=== PATIENT | female | born 1980 | race American Indian/Alaskan Native ===

== ENCOUNTER 2016-06-29 19:47 | Inpatient (IN) | payer MEDICAID, OTHER ==
--- NOTE | 2016-06-29 20:29 | C.PDOC ---
History Of Present Illness 36 year old female presents to the ED with complaints of suicidal ideation. Patient states she is depression and denies homicidal ideation or any physical complaints at this time. Time Seen by Provider: 06/29/16 20:19 Chief Complaint (Nursing): Psychiatric Evaluation History Per: Patient History/Exam Limitations: no limitations Onset/Duration Of Symptoms: Days Current Symptoms Are (Timing): Still Present Suicide/Self Injury Attempted (Context): None Associated Symptoms: Depression, Suicidal Thoughts Past Medical History Reviewed: Historical Data, Nursing Documentation, Vital Signs Vital Signs: Last Vital Signs Temp 98.4 F 06/29/16 20:14 Pulse 87 06/29/16 20:14 Resp 20 06/29/16 20:14 BP 118/79 06/29/16 20:14 Pulse Ox 100 06/29/16 21:18 - Medical History PMH: Anemia Family History: States: Unknown Family Hx - Social History Hx Alcohol Use: No Hx Substance Use: Yes - Immunization History Hx Tetanus Toxoid Vaccination: No Hx Influenza Vaccination: No Hx Pneumococcal Vaccination: No Review Of Systems Except As Marked, All Systems Reviewed And Found Negative. Constitutional: Negative for: Fever, Chills Cardiovascular: Negative for: Chest Pain, Palpitations Respiratory: Negative for: Shortness of Breath Gastrointestinal: Negative for: Abdominal Pain Psych: Positive for: Depression, Suicidal ideation Physical Exam - Physical Exam Appears: Non-toxic, No Acute Distress Skin: Warm, Dry Head: Atraumatic, Normacephalic Eye(s): bilateral: Normal Inspection Oral Mucosa: Moist Chest: Symmetrical Cardiovascular: Rhythm Regular Respiratory: Normal Breath Sounds, No Accessory Muscle Use Extremity: Normal ROM, No Deformity Neurological/Psych: Oriented x3, Normal Speech ED Course And Treatment - Laboratory Results Result Diagrams: 06/29/16 20:58 06/29/16 20:58 O2 Sat by Pulse Oximetry: 100 (Room air) Pulse Ox Interpretation: Normal Medical Decision Making Medical Decision Making: Plan: -Blood work -Urinalysis Progress: Case discussed with the crisis care aid who agreed to evaluate the patient. 918: h/h baseline, noted previous admission with anemia w/u. pt medically cleared Disposition - Disposition Disposition: HOSPITALIZED Disposition Time: 22:29 Condition: STABLE - Clinical Impression Clinical Impression: Moderate major depression, single episode - Scribe Statement The provider has reviewed the documentation as recorded by the Scribe Elvia Avalos. Provider Attestation: All medical record entries made by the Wilbur were at my direction and personally dictated by me. I have reviewed the chart and agree that the record accurately reflects my personal performance of the history, physical exam, medical decision making, and the department course for this patient. I have also personally directed, reviewed, and agree with the discharge instructions and disposition. Decision To Admit - Pt Status Changed To: Hospital Disposition Of: Inpatient - Admit Certification Admit to Inpatient:: After my assessment, the patient will require hospitalization for at least two midnights. This is because of the severity of symptoms shown, intensity of services needed, and/or the medical risk in this patient being treated as an outpatient. - InPatient: Physician Admission Certification: I certify that this patient requires 2 or more midnights of care for the following reason:: pt need sin pt pysch for si - . Bed Request Type: Psychiatry Admitting Physician: Maxwell Thomas Patient Diagnosis: Moderate major depression, single episode
[2016-06-29 20:53] LABS: RBC URINE 3 /hpf (0-3); URINE BACTERIA RARE (<OCC); URINE BILIRUBIN NEGATIVE (NEGATIVE); URINE BLOOD NEGATIVE (NEGATIVE); URINE COLOR Yellow (YELLOW); URINE GLUCOSE (UA) NORMAL (Normal); URINE KETONE NEGATIVE (NEGATIVE); URINE LEUKOCYTE ESTERASE NEG Leu/uL (Negative); URINE PROTEIN NEGATIVE (NEGATIVE); URINE UROBILINOGEN NORMAL mg/dL (0.2-1.0); WBC URINE 2 /hpf (0-5)
[2016-06-29 21:04] LABS: BASO # 0.1 K/uL (0.0-0.2); BASO % 1.1 % (0.0-2.0); EOS # 0.1 K/uL (0.0-0.7); EOS % 2.3 % (0.0-4.0); HEMATOCRIT 28.9 % (34.0-47.0); LYMPH # 2.1 K/uL (1.0-4.3); LYMPH % 33.9 % (20.0-40.0); MEAN CORPUSCULAR HEMOGLOBIN 20.3 pg (27.0-31.0); MEAN PLATELET VOLUME 8.7 fL (7.2-11.7); MONO # 0.5 K/uL (0.0-0.8); MONO % 8.3 % (0.0-10.0); RED CELL DISTRIBUTION WIDTH 34.9 % (11.5-14.5); WHITE BLOOD COUNT 6.3 K/uL (4.8-10.8)
[2016-06-29 21:06] LABS: CHLORIDE 98 mmol/L (98-107)
[2016-06-29 21:07] LABS: POTASSIUM 3.4 mmol/L (3.6-5.2); SODIUM 141 mmol/L (132-148)
[2016-06-29 21:09] LABS: ALB/GLOB RATIO 1.4 (1.0-2.1); ALKALINE PHOSPHATASE 48 U/L (38-126); ALT/SGPT 21 U/L (9-52); AST/SGOT 15 U/L (14-36); BILIRUBIN,TOTAL 0.3 mg/dL (0.2-1.3); BLOOD UREA NITROGEN 8 mg/dL (7-17); CARBON DIOXIDE 28 mmol/L (22-30); GFR AFRICAN-AMERICAN > 60; GLUCOSE,RANDOM 86 mg/dL (65-105); TOTAL PROTEIN 7.6 g/dL (6.3-8.3)
[2016-06-29 21:10] LABS: ALCOHOL SERUM < 10 mg/dl (0-10); CALCIUM 8.3 mg/dl (8.6-10.4); MEAN CELL VOLUME 67.7 fL (81.0-99.0)
[2016-06-29 23:05] VITALS: O2SAT 98
[2016-06-30] MEDS ORDERED: Influenza Virus Vaccine 45 mcg/0.5 ml Syr IM ONE (00:53)
[2016-06-30] MEDS ORDERED: Pneumococcal 23-Valent Vaccine IM ONE (00:53)
--- NOTE | 2016-06-30 13:57 | PCM.PSYCH ---
Initial Psychiatric Evaluation - Initial Psychiatric Evaluation Type of Admission: Voluntary Legal Status: Capacity Chief Complaint (in patient's own words): I'm hearing voices History of Present Illness and Precipitating Events: This is a 36 years old -Welsh female who lives with her mother and 2 kids. Patient came to the hospital because of depressed mood, auditory hallucinations command type to kill herself and pain medication abuse. Patient is known to the personal lines underwriter as patient was recently discharged from [facility] almost 1 month ago. As per the patient, she relapsed on oxycodone as soon as she was discharged from the hospital. As per the patient she has been taking 3-4 30 mg oxycodones on a daily basis. Patient states that yesterday she consumed almost 3 pills, became increasingly irritable and agitated, started hearing voices and developed suicidal ideation, so came to the hospital to get help. Patient reports of racing of thoughts, flight of ideas and poor concentration. She also reports at times depressed mood, feelings of hopelessness and helplessness, poor sleep and poor appetite. Patient reports of auditory hallucinations command type to kill herself and reports persecutory delusions that someone is following her. Patient reports withdrawal symptoms including nausea, abdominal cramps, bone pains, hot and cold sweats, and anxiety. Urinary toxicology is positive for benzodiazepine, however, she denies any drinking or any other substance abuse. Medical history Iron deficiency anemia Current Medications: Active Medications Generic Name Dose Route Start Last Admin Trade Name Freq PRN Reason Stop Dose Admin Benztropine Mesylate 1 mg 06/30/16 22:00 Cogentin PO HS VIDA Ibuprofen 600 mg 06/30/16 00:04 06/30/16 00:56 Motrin Tab PO 600 mg Q6H PRN Administration Pain, moderate (4-7) Methadone HCl 20 mg 06/30/16 13:53 Methadone PO 06/30/16 13:54 STAT STA Risperidone 1 mg 06/30/16 22:00 Risperdal Tab PO HS VIDA Sertraline HCl 100 mg 07/01/16 10:00 Zoloft PO DAILY VIDA Trazodone HCl 50 mg 06/30/16 00:15 06/30/16 00:48 Desyrel PO 50 mg HS VIDA Administration Trazodone HCl 50 mg 06/30/16 22:00 Desyrel PO HS VIDA Past Psychiatric History - Past Psychiatric History Previous Treatment History: Inpatient Pertinent Medical Hx (Current Medical&Sleep Prob, Allergies): Allergies Allergy/AdvReac Type Severity Reaction Status Date / Time No Known Allergies Allergy Verified 06/29/16 20:13 oxyCODONE [oxyCODONE Immediate Release Tab] 30 mg PO DAILY 05/22/16 Benztropine [Cogentin] 1 mg PO HS #30 tab 05/28/16 Sertraline [Zoloft] 100 mg PO DAILY #60 tab 05/28/16 risperiDONE [RisperDAL Tab] 1 mg PO HS #30 tab 05/28/16 traZODone [Desyrel] 50 mg PO HS #30 tab 05/28/16 Review of Systems - Review of Systems All systems: reviewed and no additional remarkable complaints except - Psychiatric Psychiatric: Anxiety, Auditory Hallucinations, Irritability, Mood Swings, Paranoia, Suicidal Ideation Mental Status Examination - Personal Presentation Personal Presentation: Looks stated age - Affect Affect: Constricted, Depressed - Motor Activity Motor Activity: Psychomotor Agitation - Reliability in Providing Information Reliability in Providing Information: Poor, due to altered mood - Speech Speech: Organized - Mood Mood: Depressed, Anxious - Formal Thought Process Formal Thought Process: Hallucinations, Delusions, Paranoia, Loosening of associations - Hallucinations/Delusions Hallucinations: Auditory Delusions: Persecution - Obsessions/Compulsions Obsessions: No Compulsions: No - Cognitive Functions Orientation: Person, Place, Situation, Time Sensorium: Alert Attention/Concentration: Attentive Abstract Thinking: [place] Estimate of Intelligence: Below average Judgement: Imparied, as evidence by: Poor judgement, Imparied, as evidence by: Lack of insight into illness - Risk Risk: Suicidal, Withdrawal, Diminished functioning - Strength & Assets Inventory Strength & Assets Inventory: Family support DSM 5 DX - DSM 5 DSM 5 Diagnosis: Bipolar disorder mixed severe with psychotic features Opioid use disorder severe Opioid withdrawal - Recommended/Plan of Treatment Treatment Recommendations and Plan of Treatment: Bipolar disorder mixed severe with psychotic features CBT Psychoeducation Supportive therapy and group therapy Zoloft 25 mg by mouth twice a day Risperdal 1 mg by mouth daily at bedtime Depakote 250 mg by mouth twice a day Trazodone 50 mg by mouth daily at bedtime Opioid use disorder severe CBT Psychoeducation Supportive therapy, individual therapy Use [place] for abstinence Opioid withdrawal CBT Psychoeducation Supportive therapy, individual therapy Clonidine when necessary Methadone taper Iron Deficiency Anemia Start iron tablets Monitor signs and symptoms - Smoking Cessation Smoking Cessation Initiated: No
[2016-06-30] MEDS ORDERED: Divalproex 250 mg DR Tab PO SCH (18:00)
[2016-06-30] MEDS: Ferrous Sulfate 300 mg/5 mL Liq UD PO SCH (19:49)
[2016-06-30] MEDS: Valproic Acid 250 mg/5 ml UD Cup PO SCH (19:49)
[2016-07-01] MEDS: Ferrous Sulfate 300 mg/5 mL Liq UD PO SCH ×3 (09:41→17:16)
[2016-07-01] MEDS: Valproic Acid 250 mg/5 ml UD Cup PO SCH ×2 (09:41→17:16)
--- NOTE | 2016-07-01 14:38 | PCM.PYCHPN ---
Psychiatric Progress Note - Psychiatric Progress Note Patient seen today, length of contact: 17 min Patient Chief Complaint: I'm still feeling anxious Problems Identified/Issues Discussed: Patient seen and evaluated, chart reviewed and discussed with the nurse. Patient reports irritability and agitation. She reports racing of thoughts and flight of ideas and anxiety. She remained isolated and withdrawn. She still reports withdrawal symptoms including anxiety, headaches, cramps, bone pains and sweating. She reports of auditory hallucinations and persecutory delusions. However she remained calm and cooperative. She is taking medication and denies any side effects. Supportive therapy and psychoeducation were given Medication Change: Yes (Start Depakote) Medical Record Reviewed: Yes Mental Status Examination - Cognitive Function Orientation: Person, Place, Situation, Time Memory: Intact Attention: WNL Concentration: Poor Association: Loose Fund of Knowledge: WNL - Mood Mood: Depressed, Anxious - Affect Affect: Constricted, Depressed - Speech Speech: Soft - Formal Thought Process Formal Thought Process: Hallucinations, Delusions, Paranoia, Loosening of associations - Suicidal Ideation Suicidal Ideation: No - Homicidal Ideation Homicidal Ideation: No Goal/Treatment Plan - Goal/Treatment Plan Need for Continued Stay: Discharge may exacerbated symptoms, Severe functional impairment Progress Toward Problem(s) and Goals/Treatment Plan: Bipolar disorder mixed severe with psychotic features CBT Psychoeducation Supportive therapy and group therapy Zoloft 25 mg by mouth twice a day Risperdal 1 mg by mouth daily at bedtime Depakote 250 mg by mouth daily Depakote 500 mg by mouth HS Trazodone 50 mg by mouth daily at bedtime Opioid use disorder severe CBT Psychoeducation Supportive therapy, individual therapy Use [place] for abstinence Opioid withdrawal CBT Psychoeducation Supportive therapy, individual therapy Clonidine when necessary Methadone taper Iron Deficiency Anemia iron tablets Monitor signs and symptoms - Smoking Cessation Smoking Cessation Initiated: No
[2016-07-02] MEDS: Valproic Acid 250 mg/5 ml UD Cup PO SCH ×3 (10:45→18:09)
[2016-07-02] MEDS: Ferrous Sulfate 300 mg/5 mL Liq UD PO SCH ×3 (10:46→18:07)
--- NOTE | 2016-07-02 10:51 | PCM.PYCHPN ---
Psychiatric Progress Note - Psychiatric Progress Note Patient seen today, length of contact: 19 min Patient Chief Complaint: I'm hearing voices Problems Identified/Issues Discussed: Patient seen and evaluated, chart reviewed and discussed with the nurse. As per the staff patient remained irritable and agitated. she reports that her head never stops and these racing of thoughts and anxiety is bothering her. She still reports withdrawal symptoms including cramps, bone pains, anxiety, headaches and sweating. She is still reporting auditory hallucinations and persecutory delusions. She was pacing back and forth in the hallways and appeared disorganized and internally preoccupied. She is taking medication and denies any side effects. Supportive therapy and psychoeducation were given Medication Change: Yes (Start Haldol, and increase Depakote) Medical Record Reviewed: Yes Mental Status Examination - Cognitive Function Orientation: Person, Place, Situation, Time Memory: Intact Attention: WNL Concentration: Poor Association: Loose Fund of Knowledge: WNL - Mood Mood: Depressed, Anxious - Affect Affect: Constricted, Depressed - Formal Thought Process Formal Thought Process: Hallucinations, Delusions, Paranoia, Loosening of associations, Flight of ideas - Suicidal Ideation Suicidal Ideation: No - Homicidal Ideation Homicidal Ideation: No Goal/Treatment Plan - Goal/Treatment Plan Need for Continued Stay: Discharge may exacerbated symptoms, Severe functional impairment Progress Toward Problem(s) and Goals/Treatment Plan: Bipolar disorder mixed severe with psychotic features CBT Psychoeducation Supportive therapy and group therapy Zoloft 25 mg by mouth twice a day d/c Risperdal 1 mg by mouth daily at bedtime Depakote 500 mg by mouth twice a day Trazodone 50 mg by mouth daily at bedtime Haldol 5 mg by mouth twice a day Seroquel 50 mg by mouth daily at bedtime Opioid use disorder severe CBT Psychoeducation Supportive therapy, individual therapy Use [place] for abstinence Opioid withdrawal CBT Psychoeducation Supportive therapy, individual therapy Clonidine when necessary Methadone taper Iron Deficiency Anemia iron tablets Monitor signs and symptoms - Smoking Cessation Smoking Cessation Initiated: Yes
[2016-07-03] MEDS: Valproic Acid 250 mg/5 ml UD Cup PO SCH ×2 (09:46→18:26)
[2016-07-03] MEDS: Ferrous Sulfate 300 mg/5 mL Liq UD PO SCH ×3 (09:46→18:26)
[2016-07-04] MEDS: Ferrous Sulfate 300 mg/5 mL Liq UD PO SCH ×3 (09:53→17:46)
[2016-07-04] MEDS: Valproic Acid 250 mg/5 ml UD Cup PO SCH ×2 (09:53→17:46)
--- NOTE | 2016-07-04 22:49 | PCM.PYCHPN ---
Psychiatric Progress Note - Psychiatric Progress Note Patient seen today, length of contact: 15 MIN Patient Chief Complaint: i AM IN PAIN THE OTHER DOCTOR SAID HE WOULD ORDER TRAMADOL BUT HE DIDN'T Problems Identified/Issues Discussed: TRAMADOL WOULD NOT BE ORDERED, SYMPTOM MANAGEMENT Medical Problems: NOTHING ACUTE Diagnostic Results: REVIEWED Medication Change: Yes (FLEXERIL) Medical Record Reviewed: Yes Mental Status Examination - Cognitive Function Orientation: Place, Situation, Time Memory: Intact Attention: WNL Concentration: Poor Association: WNL Fund of Knowledge: WNL - Mood Mood: Depressed, Anxious - Affect Affect: Constricted, Depressed - Speech Speech: Appropriate, Soft - Formal Thought Process Formal Thought Process: Hallucinations, Delusions, Loosening of associations, Flight of ideas, Other Psychotic Thoughts and Behaviors: ATTEMPTS MANIPULATION - Suicidal Ideation Suicidal Ideation: No - Homicidal Ideation Homicidal Ideation: No Goal/Treatment Plan - Goal/Treatment Plan Need for Continued Stay: Discharge may exacerbated symptoms, Severe functional impairment Progress Toward Problem(s) and Goals/Treatment Plan: BIPOLAR DISORDER- HALDOL DEPAKOTE OPIATE WITHDRAWAL METHADONE TAPER FINISHED OPIATE USE DISORDER GROUPS HI CBT Estimated Date of D/C: 07/10/16 - Smoking Cessation Smoking Cessation Initiated: No
--- NOTE | 2016-07-04 22:55 | PCM.PYCHPN ---
Psychiatric Progress Note - Psychiatric Progress Note Patient seen today, length of contact: 15 MIN Patient Chief Complaint: i CAN I HAVE SOMA INSTEAD OF FLEXERIL Problems Identified/Issues Discussed: PAWS Medical Problems: NOTHING ACUTE Diagnostic Results: REVIEWED Medication Change: No (FLEXERIL) Medical Record Reviewed: Yes Mental Status Examination - Cognitive Function Orientation: Person, Place, Situation Memory: Intact Attention: WNL Concentration: Poor Association: WNL Fund of Knowledge: WNL - Mood Mood: Depressed, Anxious - Affect Affect: Constricted, Depressed - Speech Speech: Appropriate, Soft - Formal Thought Process Formal Thought Process: Hallucinations, Delusions, Loosening of associations, Flight of ideas, Other Psychotic Thoughts and Behaviors: MANIPULATIVE - Suicidal Ideation Suicidal Ideation: No - Homicidal Ideation Homicidal Ideation: No Goal/Treatment Plan - Goal/Treatment Plan Need for Continued Stay: Remain at risks for inpatient hospitalization, Discharge may exacerbated symptoms, Severe functional impairment Progress Toward Problem(s) and Goals/Treatment Plan: BIPOLAR DISORDER- HALDOL DEPAKOTE OPIATE WITHDRAWAL METHADONE TAPER FINISHED OPIATE USE DISORDER GROUPS [place] CBT Estimated Date of D/C: 07/10/16 - Smoking Cessation Smoking Cessation Initiated: No
[2016-07-05] MEDS: Ferrous Sulfate 300 mg/5 mL Liq UD PO SCH ×2 (10:09→13:05)
[2016-07-05] MEDS: Valproic Acid 250 mg/5 ml UD Cup PO SCH (10:10)
[2016-07-05 10:43] VITALS: RESP 18; TEMP 98.2
--- NOTE | 2016-07-05 10:51 | PCM.PYCHDC ---
Mental Status Examination - Mental Status Examination Orientation: Person, Place, Situation, Time Memory: Intact Mood: Neutral Affect: Constricted Speech: Soft Attention: WNL Concentration: WNL Association: WNL Fund of Knowledge: WNL Formal Thought Process: No Impairment Description of patient's judgement and insight: good, fair Psychotic Thoughts and Behaviors: denies any AVH Suicidal Ideation: No Current Homicidal Ideation?: No Discharge Summary - Discharge Note Reason for Hospitalization: This is a 36 years old -Senegalese female who lives with her mother and 2 kids. Patient came to the hospital because of depressed mood, auditory hallucinations command type to kill herself and pain medication abuse. Patient is known to the parts data writer as patient was recently discharged from [facility] almost 1 month ago. As per the patient, she relapsed on oxycodone as soon as she was discharged from the hospital. As per the patient she has been taking 3-4 30 mg oxycodones on a daily basis. Patient states that yesterday she consumed almost 3 pills, became increasingly irritable and agitated, started hearing voices and developed suicidal ideation, so came to the hospital to get help. Patient reports of racing of thoughts, flight of ideas and poor concentration. She also reports at times depressed mood, feelings of hopelessness and helplessness, poor sleep and poor appetite. Patient reports of auditory hallucinations command type to kill herself and reports persecutory delusions that someone is following her. Patient reports withdrawal symptoms including nausea, abdominal cramps, bone pains, hot and cold sweats, and anxiety. Urinary toxicology is positive for benzodiazepine, however, she denies any drinking or any other substance abuse. Medical history Iron deficiency anemia Consultations:: List each consultation separately and include: 1. Reason for request. 2. Findings. 3. Follow-up Summary of Hospital Course include:: 1. Description of specific treatment plan utilized for patients during their course of treatmen. 2. Summarize the time- course for resolution of acute symptoms and/or regressed behaviors. 3. Describe issues identified and worked on during hospitalization. 4. Describe medication utilized. 5. Describe medical problems identified and treated. 6. Reassessment of suicide risk Summary of Hospital Course: During the course of her stay, patient (pt) started progressively improving and she no longer remained irritable, anxious and paranoid. Her mood and paranoia were improved and she started attending groups and meetings and started socializing. Patient denied any feelings of hopelessness, helplessness, and worthlessness, denied any problem with the sleep or appetite, denied suicidal ideation or homicidal ideation. Pt denied any auditory or visual hallucinations. Some changes were made in her current medications and patient was discharged on following medications. She tolerated these medications very well and denied any side effects. - Final Diagnosis (DSM 5) Condition upon Discharge: STABLE DSM 5: Bipolar disorder mixed severe with psychotic features Opioid use disorder severe Opioid withdrawal Disposition: HOME/ ROUTINE Follow-up Treatment Plan: Education: Pt was educated and counseled about the risks and benefits of taking and not taking medications. Pt was educated and counseled about the risks of drinking and abusing drugs. Pt was educated and counseled to go to the ER or call 911 if pt develop suicidal ideation or homicidal ideation, worsening of symptoms or severe side effects of the meds. Prescriptions/Medication Reconciliation: Benztropine [Cogentin] 1 mg PO BID PRN #60 tab PRN Reason: EPS SYMPTOMS Divalproex [Depakote DR(*BID*)] 500 mg PO BID #60 tcp traZODone [Desyrel] 50 mg PO HS PRN #30 tab PRN Reason: Insomnia Haloperidol [Haldol] 5 mg PO BID #60 tab QUEtiapine [SEROquel] 50 mg PO HS #30 tab Sertraline [Zoloft] 25 mg PO DAILY #30 tab - Smoking Cessation Smoking Cessation Medication prescribed: No - Antipsychotic Medications Pt discharged on 2 or more routine antipsychotic medications: No
[2016-07-05 16:07] VITALS: BP 105/69; PULSE 86
== END 2016-07-05 15:45 | disposition home or self-care (01) | DRG 430 ==
LOC: C.ER 19:47 → C.5E 22:29
DX: F31.64 Bipolar disorder, current episode mixed, severe, with psychotic features (principal); R45.851 Suicidal ideations; F11.23 Opioid dependence with withdrawal; D50.9 Iron deficiency anemia, unspecified; F17.200 Nicotine dependence, unspecified, uncomplicated; F41.9 Anxiety disorder, unspecified; Z79.899 Other long term (current) drug therapy

== ENCOUNTER 2017-01-11 11:08 | Inpatient (IN) | payer MEDICAID, OTHER ==
[2017-01-11 11:13] VITALS: BMI 23.3
--- NOTE | 2017-01-11 11:58 | C.PDOC ---
History Of Present Illness 36 y/o female, history of depression and medication abuse, also chronic anemia, DUB, presents to emergency department with complaint of suicidal ideation and suicidal attempt last night. Patient states that she took Hydralazine 15 tablets yesterday, received "from somebody else". Pt admits, it was 24 hrs ago. She states that she "fell asleep, and woke up, nothing happened." Patient reports she feels depressed with suicidal thoughts currently. She reports last dose of oxycodone was 3 days ago. Denies any active physical complaints at this time. Time Seen by Provider: 01/11/17 11:23 Chief Complaint (Nursing): Psychiatric Evaluation History Per: Patient History/Exam Limitations: no limitations Onset/Duration Of Symptoms: Days Current Symptoms Are (Timing): Still Present Suicide/Self Injury Attempted (Context): Ingestion Modifying Factor(s): Narcotics Associated Symptoms: Depression, Suicidal Thoughts, Suicidal Plan Recent travel outside of the [place]: No Past Medical History Reviewed: Historical Data, Nursing Documentation, Vital Signs Vital Signs: Last Vital Signs Temp 98.3 F 01/11/17 14:53 Pulse 92 H 01/11/17 16:27 Resp 20 01/11/17 17:28 BP 128/84 01/11/17 16:27 Pulse Ox 100 01/11/17 15:00 - Medical History PMH: Anemia, Anxiety, Depression Family History: States: Unknown Family Hx - Social History Hx Alcohol Use: No Hx Substance Use: Yes (Benzo and opiates-Xanax and oxycodone) - Immunization History Hx Tetanus Toxoid Vaccination: No Hx Influenza Vaccination: No Hx Pneumococcal Vaccination: No Review Of Systems Except As Marked, All Systems Reviewed And Found Negative. Constitutional: Negative for: Fever, Chills Cardiovascular: Negative for: Chest Pain Respiratory: Negative for: Cough, Shortness of Breath Gastrointestinal: Negative for: Nausea, Vomiting, Abdominal Pain Skin: Negative for: Rash Neurological: Negative for: Headache, Dizziness Psych: Positive for: Depression, Suicidal ideation Physical Exam - Physical Exam Appears: Non-toxic, No Acute Distress Skin: Normal Color, Warm, Dry Head: Atraumatic, Normacephalic Oral Mucosa: Moist Chest: Symmetrical Cardiovascular: Rhythm Regular Respiratory: Normal Breath Sounds, No Rales, No Rhonchi, No Wheezing Gastrointestinal/Abdominal: Soft, No Tenderness, No Guarding, No Rebound Back: Normal Inspection Extremity: Normal ROM, Capillary Refill (< 2 sec.) Neurological/Psych: Oriented x3, Normal Speech, Normal Cognition ED Course And Treatment - Laboratory Results Result Diagrams: 01/11/17 11:58 01/11/17 11:58 Lab Interpretation: No Changes Compared To Prior Results ECG: Interpreted By Me, Viewed By Me Interpretation Of ECG: SR@80/min, NAD, T wave inversion in V2-V4, no acute ST-T changes. O2 Sat by Pulse Oximetry: 100 (RA) Pulse Ox Interpretation: Normal Progress Note: Poison control was called by ALLEN [facility]. Recommend blood work including ASA and Tylenol level. On re-evaluation, pt remained unchanged. Afebrile, hemodynamicaly stable, non-toxic, copperative. Neck; Supple, (-) carotid bruits B/L, (-) JVD. CVS: (+)S1S2, reg, (-) murmur. Lungs: CTA B/L, BS equal B/L. Abd: benign. Blood work review and low hemoglobin noted. Pt admits, had transfusion on 05/22/16, " my baseline Hb usually 7". No other acute abnormalities noted. Ptw as OBS in ED for 2 hours and remianed stable. Pt is medically cleared for psych eval. After Crisis eval pt in ED, case discussed with DR. bennett and admission recommend with Dx: Depression, suicidal.Medication abuse. Chronic anemia. Disposition - Disposition Disposition: HOSPITALIZED Disposition Time: 14:59 Condition: STABLE - Clinical Impression Clinical Impression: Suicide attempt, Moderate major depression, single episode, Anemia - PA / PATTERN PUNCHER / Resident Statement MD/DO has reviewed & agrees with the documentation as recorded. - Scribe Statement The provider has reviewed the documentation as recorded by the Scribe Martin Quinn All medical record entries made by the Wilbur were at my direction and personally dictated by me. I have reviewed the chart and agree that the record accurately reflects my personal performance of the history, physical exam, medical decision making, and the department course for this patient. I have also personally directed, reviewed, and agree with the discharge instructions and disposition.
[2017-01-11 12:07] LABS: HEMATOCRIT 24.9 % (34.0-47.0); MEAN CORPUSCULAR HEMOGLOBIN 16.5 pg (27.0-31.0); MEAN CORPUSCULAR HGB CONC 30.1 g/dL (33.0-37.0); MEAN PLATELET VOLUME 10.1 fL (7.2-11.7); RED CELL DISTRIBUTION WIDTH 23.4 % (11.5-14.5); WHITE BLOOD COUNT 5.7 K/uL (4.8-10.8)
[2017-01-11 12:10] LABS: MEAN CELL VOLUME 54.7 fL (81.0-99.0)
[2017-01-11 12:13] LABS: CHLORIDE 104 mmol/L (98-107); SODIUM 142 mmol/L (132-148)
[2017-01-11 12:15] LABS: AST/SGOT 13 U/L (14-36); BILIRUBIN,TOTAL 0.6 mg/dL (0.2-1.3); CARBON DIOXIDE 20 mmol/L (22-30); GFR AFRICAN-AMERICAN > 60
[2017-01-11 12:16] LABS: ALB/GLOB RATIO 1.4 (1.0-2.1); ALKALINE PHOSPHATASE 47 U/L (38-126); ALT/SGPT 19 U/L (9-52); BLOOD UREA NITROGEN 6 mg/dL (7-17); GLUCOSE,RANDOM 87 mg/dL (65-105); TOTAL PROTEIN 8.1 g/dL (6.3-8.3)
[2017-01-11 12:42] LABS: LYMPH # 1.4 K/uL (1.0-4.3)
[2017-01-11 12:43] LABS: BASO # 0.1 K/uL (0.0-0.2); EOS # 0.1 K/uL (0.0-0.7)
[2017-01-11 13:11] LABS: RBC URINE 1 /hpf (0-3); URINE BACTERIA RARE (<OCC); URINE BILIRUBIN NEGATIVE (NEGATIVE); URINE BLOOD NEGATIVE (NEGATIVE); URINE COLOR Yellow (YELLOW); URINE GLUCOSE (UA) NORMAL (Normal); URINE KETONE NEGATIVE (NEGATIVE); URINE LEUKOCYTE ESTERASE 1+ Leu/uL (Negative); URINE PROTEIN NEGATIVE (NEGATIVE); URINE UROBILINOGEN NORMAL mg/dL (0.2-1.0); WBC URINE 7 /hpf (0-5)
[2017-01-11] MEDS ORDERED: Aluminum Hydroxide/Magnesium Hydroxide Susp (30 mL) PO PRN (17:42)
[2017-01-11] MEDS: Multiple Vitamins Tab PO SCH ×2 (18:08→18:22)
--- NOTE | 2017-01-11 18:34 | PCM.BM ---
<VirgilioUna - Last Filed: 01/11/17 18:31> Treatment Plan Problems - Problems identified on initial assessmt Depression Date Initiated: 01/11/17 Time Initiated: 16:15 Assessment reference: NA Status: Active Treatment assets and liabiliti Patient Assests: adapts well, cooperative, negotiates basic needs Patient Liabilities: live alone <Bailey Llamas - Last Filed: 01/12/17 11:13> Family Contact Family involvement: Famliy/SO not involved - Goals for Treatment Patient goals for treatment: "I want to go to rehab." Discharge/Continuing Care - Education Needs Education Needs: Patient Medication, Patient Coping Skills - Discharge Discharge Criteria: Tolerates medication w/o severe side effects, Free of Suicidal thoughts, No longer exhibiting s/s of withdrawal Discharge to:: Substance Abuse Rehab - Treatment Team Participation Discussed with Family/SO: No Was Patient/Family/SO present at Treatment Team Meeting: Yes <Maxwell Thomas - Last Filed: 01/12/17 16:56> - Diagnosis (1) Bipolar 1 disorder, depressed, moderate Status: Acute Interventions: Assess/had just medications daily and/or as needed See patient on an individual basis 7x/week to assess status of depression Discussed risks, benefits, side effects and alternatives of medications 01/12/17 16:54 (2) Opioid dependence Status: Acute Interventions: Assess 7x/week regarding severity of withdrawal symptoms Educated regarding risks, benefits, side effects and alternatives of medications Used motivational interviewing for abstinence Use CBT for relapse prevention Medication management for withdrawal symptoms Encourage medication assisted treatment 01/12/17 16:55 (3) Cannabis use disorder, mild, abuse Status: Acute Interventions: Assess 7x/week regarding severity of withdrawal symptoms Educated regarding risks, benefits, side effects and alternatives of medications Used motivational interviewing for abstinence Use CBT for relapse prevention Medication management for withdrawal symptoms Encourage medication assisted treatment 01/12/17 16:56
[2017-01-11] MEDS ORDERED: DiphenhydrAMINE 12.5 mg/5 ml LIQ UD (5 ml) PO PRN (19:00)
[2017-01-11] MEDS ORDERED: Loperamide Hydrochloride 1 mg/5 ml Cup PO PRN (19:00)
[2017-01-11] MEDS: Acetaminophen 650mg/20.3ml solution UD PO PRN (19:29)
[2017-01-11] MEDS: Ferrous Sulfate 300 mg/5 mL Liq UD PO SCH (19:30)
[2017-01-12] MEDS: Ferrous Sulfate 300 mg/5 mL Liq UD PO SCH ×3 (09:51→18:32)
[2017-01-12] MEDS: Multiple Vitamins Tab PO SCH (09:52)
--- NOTE | 2017-01-12 16:49 | PCM.PSYCH ---
Initial Psychiatric Evaluation - Initial Psychiatric Evaluation History of Present Illness and Precipitating Events: This is a 36 years old -[place] female who lives with her mother and 2 children, 7 years and 15 years old. Patient was admitted to the hospital because of depressed mood, suicidal attempt by overdose on hydroxyzine. Reported she took 15 hydroxyzine tablets but nothing happened except sleep. After waking, came to [facility] ER and was admitted subsequently, and pain medication abuse. Patient reported feeling more depressed for last 7 months, decreased sleep, variable appetite, no change in weight. Suicidal ideations with plan to overdose on her medications and subsequently attempted by overdosing on 15 tablets of hydroxyzine. History of one previous suicidal attempts in May 2016 when patient was admitted to [facility]. History of 2 previous admissions at [facility] in May and June 2016. Currently denied any psychotic features but during her last admission patient reported having command type auditory hallucinations telling her to kill herself. Patient also reported having mood swings, racing thoughts, irritability, anger and spending money. Denied any anxiety symptoms. Patient has history of oxycodone use. Reported she started to 3 years ago. In the beginning she was prescribed Percocet after right wrist surgery. Later she started buying oxycodone from [employer]. Currently reported was taking 10 oxycodone tablets each of 30 mg daily. His last used reported 2 days ago. Reported having mild withdrawal symptoms. Cannabis. Started 10 years ago and last use reported 2 months ago. Urine drug screen is positive for cannabis but not for opiates. Patient smokes one pack of cigarettes daily and is requesting for nicotine patch. Patient has iron deficiency anemia, not taking treatment. History of right wrist surgery and 2 C-sections. Patient was born in [place], has high school graduation, not working. Her last job was in December 2016. Lives with HER-2 children and mother. She is single. Her height is 5 feet 5 inches and weight is 140 pounds. Current Medications: Active Medications Generic Name Dose Route Start Last Admin Trade Name Freq PRN Reason Stop Dose Admin Acetaminophen 650 mg 01/11/17 18:26 01/11/17 19:29 Tylenol 650mg/20.3ml Solution Ud PO 650 mg Q6H PRN Administration Pain, moderate (4-7) Al Hydrox/Mg Hydrox/Simethicone 30 ml 01/11/17 17:42 Maalox 30 Ml PO TID PRN Indigestion / Heartburn Ciprofloxacin 500 mg 01/12/17 18:00 Cipro PO 01/16/17 23:59 BID VIDA Clonidine HCl 0.1 mg 01/11/17 17:42 01/12/17 16:23 Catapres PO 0.1 mg Q8 PRN Administration COWS Score More or Equal to 5 Diphenhydramine HCl 25 mg 01/11/17 19:00 Benadryl PO Q6 PRN Anxiety Docusate Sodium 100 mg 01/11/17 18:00 01/12/17 09:59 Colace PO Not Given BID VIDA Ferrous Sulfate 300 mg 01/11/17 19:00 01/12/17 13:34 Feosol Liq PO 300 mg TID VIDA Administration Hydroxyzine HCl 50 mg 01/12/17 16:11 01/12/17 16:18 Atarax PO 50 mg Q6 PRN Administration Anxiety Loperamide HCl 2 mg 01/11/17 19:00 Imodium PO Q8 PRN Diarrhea Multivitamins 1 tab 01/11/17 17:45 01/12/17 09:52 Hexavitamin PO 1 tab DAILY VIDA Administration Ondansetron HCl 4 mg 01/11/17 19:00 Zofran Odt PO Q8 PRN Nausea/Vomiting Pneumococcal Polyvalent Vaccine 0.5 ml 01/14/17 10:00 Pneumovax 23 Vaccine IM 01/14/17 10:01 .ONCE ONE Risperidone 1 mg 01/12/17 22:00 Risperdal Oral Soln PO HS VIDA Sertraline HCl 25 mg 01/11/17 17:45 01/12/17 09:52 Zoloft PO 25 mg DAILY VIDA Administration Trazodone HCl 50 mg 01/11/17 22:00 01/11/17 21:37 Desyrel PO 50 mg HS VIDA Administration Valproate Sodium 250 mg 01/12/17 18:00 Depakene Oral Soln PO BID VIDA Past Psychiatric History - Past Psychiatric History Previous Treatment History: Inpatient At [facility]: [facility] x 2 History of Abuse: None reported History of ETOH/Drug Use: See HPI History of Family Illness: None reported Pertinent Medical Hx (Current Medical&Sleep Prob, Allergies): Allergies Allergy/AdvReac Type Severity Reaction Status Date / Time No Known Allergies Allergy Verified 10/03/17 11:12 oxyCODONE [oxyCODONE Immediate Release Tab] 30 mg PO DAILY 05/22/16 Iron deficiency anemia Review of Systems - Psychiatric Psychiatric: Depression Mental Status Examination - Personal Presentation Personal Presentation: Looks stated age - Affect Affect: Depressed - Motor Activity Motor Activity: Calm - Reliability in Providing Information Reliability in Providing Information: Fair - Speech Speech: Organized - Mood Mood: Depressed - Formal Thought Process Formal Thought Process: No Impairment Additional comments: None - Hallucinations/Delusions Hallucinations: Other (None reported) Delusions: Other - Obsessions/Compulsions Obsessions: None Compulsions: None - Cognitive Functions Orientation: Person, Place, Situation, Time Sensorium: Alert Attention/Concentration: Attentive Abstract Thinking: [place] Estimate of Intelligence: Average Judgement: Intact, as evidence by: Insight regarding need for hospitalization Memory: Recent intact, as evidence by: 3/3 object recall, Remote intact, as evidenced by: Ability to recall historical events - Risk Risk: Diminished functioning - Strength & Assets Inventory Strength & Assets Inventory: Family support, Cooperative - Limitations Limitations: Other DSM 5 DX - DSM 5 DSM 5 Diagnosis: Bipolar 1 disorder most recent episode depressed Opiate use disorder severe Cannabis use disorder - Recommended/Plan of Treatment Treatment Recommendations and Plan of Treatment: Patient education Supportive therapy We will start clonidine and other when necessary medications for opiate withdrawal symptoms Patient has no severe symptoms, only has mild withdrawal symptoms. If patient developed severe symptoms then we'll start methadone Medications for depression Other when necessary medications Motivation interview for abstinence C BT for relapse prevention Projected ELOS: 8-10 days - Smoking Cessation Smoking Cessation Initiated: Yes
[2017-01-12] MEDS ORDERED: Divalproex 250 mg DR Tab PO SCH (18:00)
[2017-01-12] MEDS: Valproic Acid 250 mg/5 ml UD Cup PO SCH (18:32)
[2017-01-12 20:14] LABS: IRON 439 ug/dL (37-170)
[2017-01-12 21:16] LABS: FOLATE 7.1 ng/mL
[2017-01-13] MEDS: Valproic Acid 250 mg/5 ml UD Cup PO SCH ×2 (09:19→17:59)
[2017-01-13] MEDS: Multiple Vitamins Tab PO SCH (09:20)
[2017-01-13] MEDS: Ferrous Sulfate 300 mg/5 mL Liq UD PO SCH ×3 (09:25→17:59)
--- NOTE | 2017-01-13 12:05 | PCM.PYCHPN ---
Psychiatric Progress Note - Psychiatric Progress Note Patient seen today, length of contact: 15 minutes Patient Chief Complaint: I was unable to sleep last night. I also have some anxiety, Problems Identified/Issues Discussed: Patient seen. Chart reviewed. Case discussed with the staff. Issues related to illness and treatment were discussed with the patient. Reported compliant with treatment with no adverse affects. Tolerating treatment very well. Reporting having mild withdrawal symptoms and difficulty sleeping. Patient vital signs were normal in no apparent withdrawal symptoms. Educated patient about detox. Will increase the dose of trazodone 200 mg. We will also give one dose of Ativan 1 mg stat. At the time of evaluation, patient was awake alert oriented 3, had no delusions , no auditory or visual hallucinations, no suicidal ideations or homicidal ideations. Medical Problems: Iron deficiency anemia Diagnostic Results: Reviewed DSM 5 Symptoms Update: Improving with treatment Medication Change: Yes (Dose of trazodone increased to 100 mg) Medical Record Reviewed: Yes Consults ordered or reviewed: Ordered Mental Status Examination - Cognitive Function Orientation: Person, Place, Situation, Time Memory: Intact Attention: WNL Concentration: WNL Association: [facility] Fund of Knowledge: [facility] Decription of patient's judgement and insights: Fair - Mood Mood: Anxious - Affect Affect: Other (Appropriate) - Speech Speech: Appropriate - Formal Thought Process Formal Thought Process: No Impairment Psychotic Thoughts and Behaviors: None - Suicidal Ideation Suicidal Ideation: No - Homicidal Ideation Homicidal Ideation: No Goal/Treatment Plan - Goal/Treatment Plan Need for Continued Stay: Remain at risks for inpatient hospitalization, Discharge may exacerbated symptoms, Severe functional impairment Progress Toward Problem(s) and Goals/Treatment Plan: Patient education Supportive therapy Medications for depression Other when necessary medications Motivation interview for abstinence C BT for relapse prevention Estimated Date of D/C: 01/19/17 - Smoking Cessation Smoking Cessation Initiated: Yes
[2017-01-13] MEDS: Simethicone 80 mg Chewtab PO PRN (21:40)
--- NOTE | 2017-01-14 00:07 | CP.PCM.PN ---
Subjective - Date & Time of Evaluation Date of Evaluation: 01/13/17 Time of Evaluation: 21:40 - Subjective Subjective: A code star was called on this patient at approx 2140 last night. Mrs Powell said she was coloring in the group room, received her simethicone and a few seconds later while walking back to her room she became dizzy and fell on the floor landing on her buttocks. She denied any head injury. I saw her a few minutes after the fall and she said she felt better and was no longer dizzy. She had no open wounds and did not complain of any pain except some minor soreness on her buttocks. Her vitals were 112/64, 98.4, HR 55, 98%, glucose 87. She has a hx of anemia 2/2 to fibroids and heavy menses, with a current Hgb level of 7.5. Her fall could be due to her low Hgb level although she says she is normally at a Hgb level in the 7s. A head CT was not ordered as the patient did not complain of any head trauma and her fall was witnessed by a nurse who also confirmed the patient landed on her buttocks. Objective - Vital Signs/Intake and Output Vital Signs (last 24 hours): Temp Pulse Resp BP Pulse Ox 98.3 F 91 H 18 118/77 100 01/13/17 07:25 01/13/17 17:41 01/13/17 15:46 01/13/17 17:41 01/11/17 18:44 - Medications Medications: Current Medications Acetaminophen (Tylenol 650mg/20.3ml Solution Ud) 650 mg PO Q6H PRN PRN Reason: Pain, moderate (4-7) Last Admin: 01/11/17 19:29 Dose: 650 mg Al Hydrox/Mg Hydrox/Simethicone (Maalox 30 Ml) 30 ml PO TID PRN PRN Reason: Indigestion / Heartburn Clonidine HCl (Catapres) 0.1 mg PO Q8 PRN PRN Reason: COWS Score More or Equal to 5 Last Admin: 01/13/17 17:59 Dose: 0.1 mg Diphenhydramine HCl (Benadryl) 25 mg PO Q6 PRN PRN Reason: Anxiety Docusate Sodium (Colace) 100 mg PO BID [facility] Last Admin: 01/13/17 09:26 Dose: Not Given Ferrous Sulfate (Feosol Liq) 300 mg PO TID [facility] Last Admin: 01/13/17 17:59 Dose: 300 mg Hydroxyzine HCl (Atarax) 50 mg PO Q6 PRN PRN Reason: Anxiety Last Admin: 01/13/17 21:13 Dose: 50 mg Loperamide HCl (Imodium) 2 mg PO Q8 PRN PRN Reason: Diarrhea Multivitamins (Hexavitamin) 1 tab PO DAILY [facility] Last Admin: 01/13/17 09:20 Dose: 1 tab Nicotine (Nicoderm Cq) 1 patch TD DAILY [facility] Last Admin: 01/13/17 09:18 Dose: 1 patch Nitrofurantoin Macrocrystals (Macrobid) 100 mg PO BID [facility] Stop: 01/16/17 23:59 Last Admin: 01/13/17 17:59 Dose: 100 mg Ondansetron HCl (Zofran Odt) 4 mg PO Q8 PRN PRN Reason: Nausea/Vomiting Pneumococcal Polyvalent Vaccine (Pneumovax 23 Vaccine) 0.5 ml IM .ONCE ONE Stop: 01/14/17 10:01 Risperidone (Risperdal Tab) 1 mg PO [facility] Last Admin: 01/13/17 21:13 Dose: 1 mg Sertraline HCl (Zoloft) 25 mg PO DAILY [facility] Last Admin: 01/13/17 09:19 Dose: 25 mg Simethicone (Mylicon Chew Tab) 80 mg PO Q8 PRN PRN Reason: GI distress Last Admin: 01/13/17 21:40 Dose: 80 mg Trazodone HCl (Desyrel) 100 mg PO [facility] Last Admin: 01/13/17 21:13 Dose: 100 mg Valproate Sodium (Depakene Oral Soln) 250 mg PO BID [facility] Last Admin: 01/13/17 17:59 Dose: 250 mg - Labs Labs: 01/11/17 11:58 01/11/17 11:58
[2017-01-14] MEDS ORDERED: Influenza Vaccine 60 mcg/0.5 mL SYR (4YR UP) IM ONE (10:00)
[2017-01-14] MEDS ORDERED: Pneumococcal 23-Valent Vaccine IM ONE (10:00)
[2017-01-14] MEDS: Valproic Acid 250 mg/5 ml UD Cup PO SCH ×2 (11:54→17:11)
[2017-01-14] MEDS: Multiple Vitamins Tab PO SCH (11:59)
[2017-01-14] MEDS: Ferrous Sulfate 300 mg/5 mL Liq UD PO SCH ×3 (12:19→17:11)
[2017-01-14] MEDS: Acetaminophen 650mg/20.3ml solution UD PO PRN (16:09)
--- NOTE | 2017-01-14 17:45 | PCM.PYCHPN ---
Psychiatric Progress Note - Psychiatric Progress Note Patient seen today, length of contact: 15 minutes Patient Chief Complaint: I still feel a lot of anxiety. Problems Identified/Issues Discussed: Patient seen. Chart reviewed. Case discussed with the staff. Issues related to illness and treatment were discussed with the patient. Reported compliant with treatment with no adverse affects. Tolerating treatment very well. Reported difficulty sleeping and feeling a lot of anxiety. We will start gabapentin 400 mg 3 times a day. Patient agreed. Patient fell down last night on her buttocks and was evaluated by medical team. At the time of evaluation, patient was awake alert oriented 3, had no delusions , no auditory or visual hallucinations, no suicidal ideations or homicidal ideations. Medical Problems: Iron deficiency anemia Diagnostic Results: Reviewed Medication Change: Yes (Gabapentin 400 mg 3 times a day start) Medical Record Reviewed: Yes Consults ordered or reviewed: Reviewed Mental Status Examination - Cognitive Function Orientation: Person, Place, Situation, Time Memory: Intact Attention: WNL Concentration: WNL Association: WNL Fund of Knowledge: [facility] Decription of patient's judgement and insights: Fair - Mood Mood: Anxious - Affect Affect: Other (Appropriate) - Speech Speech: Appropriate - Formal Thought Process Formal Thought Process: No Impairment Psychotic Thoughts and Behaviors: None - Suicidal Ideation Suicidal Ideation: No - Homicidal Ideation Homicidal Ideation: No Goal/Treatment Plan - Goal/Treatment Plan Need for Continued Stay: Remain at risks for inpatient hospitalization, Discharge may exacerbated symptoms, Severe functional impairment Progress Toward Problem(s) and Goals/Treatment Plan: Patient education Supportive therapy Started gabapentin 400 mg 3 times a day Continue rest of the treatment as before Estimated Date of D/C: 01/19/17 - Smoking Cessation Smoking Cessation Initiated: No
[2017-01-14] MEDS: Simethicone 80 mg Chewtab PO PRN (17:54)
[2017-01-15] MEDS: Multiple Vitamins Tab PO SCH (09:46)
[2017-01-15] MEDS: Ferrous Sulfate 300 mg/5 mL Liq UD PO SCH ×4 (09:46→19:22)
[2017-01-15] MEDS: Valproic Acid 250 mg/5 ml UD Cup PO SCH ×2 (09:48→17:31)
[2017-01-15] MEDS: Simethicone 80 mg Chewtab PO PRN (10:16)
--- NOTE | 2017-01-15 11:36 | PCM.PYCHPN ---
Psychiatric Progress Note - Psychiatric Progress Note Patient seen today, length of contact: 15 minutes Patient Chief Complaint: "I am crawling under my skin, I got some bad news" Problems Identified/Issues Discussed: She is seen, chart reviewed and case discussed. She c/o increased anxiety due to her 15 y/o son missing for two days. He was with his friend's and she says her mo cannot take good care of him as she does. She reports anxiety attacks, excessive worry, some tearfullnes Support and psychoed given CA and CBT used Medication Change: Yes (increase depakote and lexapro and add HS seroquel) Medical Record Reviewed: Yes Mental Status Examination - Cognitive Function Orientation: Person, Place, Situation, Time Memory: Intact Attention: WNL Concentration: WNL Association: WNL Fund of Knowledge: WNL - Mood Mood: Anxious - Affect Affect: Other (Appropriate) - Speech Speech: Appropriate - Formal Thought Process Formal Thought Process: No Impairment - Suicidal Ideation Suicidal Ideation: No - Homicidal Ideation Homicidal Ideation: No Goal/Treatment Plan - Goal/Treatment Plan Need for Continued Stay: Discharge may exacerbated symptoms, Severe functional impairment Progress Toward Problem(s) and Goals/Treatment Plan: Continue meds with some changes Indiv tx Groups Support and CBT Psychoeducation [place] for abstinence 33 min Estimated Date of D/C: 01/19/17
--- NOTE | 2017-01-16 06:37 | CARD ---
APPROVED REPORT EKG Measurement Heart [id number] <Conclusion> Normal sinus rhythm Possible Left atrial enlargement Nonspecific T wave abnormality Abnormal ECG
[2017-01-16 08:30] LABS: HEMATOCRIT 26.5 % (34.0-47.0); MEAN CORPUSCULAR HEMOGLOBIN 17.4 pg (27.0-31.0); MEAN CORPUSCULAR HGB CONC 29.9 g/dL (33.0-37.0); RED CELL DISTRIBUTION WIDTH 25.3 % (11.5-14.5)
[2017-01-16 08:34] LABS: CHLORIDE 101 mmol/L (98-107); POTASSIUM 4.2 mmol/L (3.6-5.2); SODIUM 138 mmol/L (132-148)
[2017-01-16 08:36] LABS: BILIRUBIN,TOTAL 0.4 mg/dL (0.2-1.3); CARBON DIOXIDE 24 mmol/L (22-30); GFR AFRICAN-AMERICAN > 60
[2017-01-16 08:37] LABS: ALB/GLOB RATIO 1.3 (1.0-2.1); ALKALINE PHOSPHATASE 52 U/L (38-126); ALT/SGPT 18 U/L (9-52); AST/SGOT 12 U/L (14-36); BLOOD UREA NITROGEN 5 mg/dL (7-17); CALCIUM 8.9 mg/dl (8.6-10.4); GLUCOSE,RANDOM 84 mg/dL (65-105); TOTAL PROTEIN 7.7 g/dL (6.3-8.3)
[2017-01-16 08:48] LABS: MEAN CELL VOLUME 58.1 fL (81.0-99.0); WHITE BLOOD COUNT 9.5 K/uL (4.8-10.8)
[2017-01-16] MEDS: Multiple Vitamins Tab PO SCH (09:13)
[2017-01-16] MEDS: Ferrous Sulfate 300 mg/5 mL Liq UD PO SCH ×3 (09:14→17:05)
[2017-01-16] MEDS: Valproic Acid 250 mg/5 ml UD Cup PO SCH ×2 (09:14→17:08)
--- NOTE | 2017-01-16 12:57 | PCM.PYCHPN ---
Psychiatric Progress Note - Psychiatric Progress Note Patient seen today, length of contact: 17 min Patient Chief Complaint: "I am extremely anxious" Problems Identified/Issues Discussed: She is seen, chart reviewed and case discussed. She still c/o aniety and is seeking nbenzos despite saying the contrary. She even implied that she will see a dr outside and will get what she wants Risks of benzos discussed and she understood and claimed benzos have never been her drug of choice. Sx mgt discussed Support given, CBT used Medication Change: Yes Medical Record Reviewed: Yes Mental Status Examination - Cognitive Function Orientation: Person, Place, Situation, Time Memory: Intact Attention: WNL Concentration: WNL Association: WNL Fund of Knowledge: WNL - Mood Mood: Anxious - Affect Affect: Other (Appropriate) - Speech Speech: Appropriate - Formal Thought Process Formal Thought Process: No Impairment - Suicidal Ideation Suicidal Ideation: No - Homicidal Ideation Homicidal Ideation: No Goal/Treatment Plan - Goal/Treatment Plan Need for Continued Stay: Discharge may exacerbated symptoms, Severe functional impairment Progress Toward Problem(s) and Goals/Treatment Plan: Continue meds with some changes Indiv tx Groups Support and CBT Psychoeducation [place] for abstinence 33 min Estimated Date of D/C: 01/19/17
[2017-01-17] MEDS: Acetaminophen 650mg/20.3ml solution UD PO PRN (06:05)
[2017-01-17 07:22] VITALS: O2SAT 99
[2017-01-17] MEDS: Multiple Vitamins Tab PO SCH (09:34)
[2017-01-17] MEDS: Ferrous Sulfate 300 mg/5 mL Liq UD PO SCH ×3 (09:34→17:37)
[2017-01-17] MEDS: Valproic Acid 250 mg/5 ml UD Cup PO SCH ×2 (09:36→17:37)
--- NOTE | 2017-01-17 14:18 | PCM.PYCHPN ---
Psychiatric Progress Note - Psychiatric Progress Note Patient seen today, length of contact: 15 minutes Patient Chief Complaint: I still feel a lot of anxiety. Can I get Ativan. Other medications are not helping me. Problems Identified/Issues Discussed: Patient seen. Chart reviewed. Case discussed with the staff. Issues related to illness and treatment were discussed with the patient. Reported compliant with treatment with no adverse affects. Tolerating treatment very well. Reported difficulty sleeping and feeling a lot of anxiety. Requesting Ativan repeatedly. According to patient this is the only medication that is helping to reduce his anxiety. Education provided about the medications. Still patient was adamant to get Ativan. Patient again mentioned that she'll see outside psychiatrist to get benzos. At the time of evaluation, patient was awake alert oriented 3, had no delusions , no auditory or visual hallucinations, no suicidal ideations or homicidal ideations. Medical Problems: Iron deficiency anemia Diagnostic Results: Reviewed DSM 5 Symptoms Update: Improving with treatment Medication Change: No Medical Record Reviewed: Yes Consults ordered or reviewed: Reviewed Mental Status Examination - Cognitive Function Orientation: Person, Place, Situation, Time Memory: Intact Attention: WNL Concentration: WNL Association: [facility] Fund of Knowledge: [facility] Decription of patient's judgement and insights: Fair - Mood Mood: Anxious - Affect Affect: Other (Inappropriate, appears normal.) - Speech Speech: Appropriate - Formal Thought Process Formal Thought Process: No Impairment Psychotic Thoughts and Behaviors: None - Suicidal Ideation Suicidal Ideation: No - Homicidal Ideation Homicidal Ideation: No Goal/Treatment Plan - Goal/Treatment Plan Need for Continued Stay: Remain at risks for inpatient hospitalization, Discharge may exacerbated symptoms, Severe functional impairment Progress Toward Problem(s) and Goals/Treatment Plan: Patient education Supportive therapy Continue treatment as before. Wants to go to [facility] for follow-up care after discharge from the hospital. Estimated Date of D/C: 01/19/17 - Smoking Cessation Smoking Cessation Initiated: Yes
[2017-01-17] MEDS: Simethicone 80 mg Chewtab PO PRN (17:07)
[2017-01-18 07:42] VITALS: BP 102/72; PULSE 82; RESP 19; TEMP 98.2
[2017-01-18] MEDS: Acetaminophen 650mg/20.3ml solution UD PO PRN (07:49)
[2017-01-18] MEDS: Ferrous Sulfate 300 mg/5 mL Liq UD PO SCH (10:04)
[2017-01-18] MEDS: Multiple Vitamins Tab PO SCH (10:05)
[2017-01-18] MEDS: Valproic Acid 250 mg/5 ml UD Cup PO SCH (10:06)
--- NOTE | 2017-01-18 14:46 | PCM.PYCHDC ---
Mental Status Examination - Mental Status Examination Orientation: Person, Place, Situation, Time Memory: Intact Mood: Neutral Affect: Other (Appropriate) Speech: Appropriate Attention: WNL Concentration: WNL Association: WNL Fund of Knowledge: WNL Formal Thought Process: No Impairment Description of patient's judgement and insight: Fair Psychotic Thoughts and Behaviors: None Suicidal Ideation: No Current Homicidal Ideation?: No Discharge Summary - Discharge Note Reason for Hospitalization: Bipolar 1 disorder depressed Opiate use disorder severe Cannabis use disorder Laboratory Data: Reviewed Consultations:: List each consultation separately and include: 1. Reason for request. 2. Findings. 3. Follow-up Consultations: Reviewed Summary of Hospital Course include:: 1. Description of specific treatment plan utilized for patients during their course of treatmen. 2. Summarize the time- course for resolution of acute symptoms and/or regressed behaviors. 3. Describe issues identified and worked on during hospitalization. 4. Describe medication utilized. 5. Describe medical problems identified and treated. 6. Reassessment of suicide risk Summary of Hospital Course: This is a 36 years old -[place] female who lives with her mother and 2 children, 7 years and 15 years old. Patient was admitted to the hospital because of depressed mood, suicidal attempt by overdose on hydroxyzine. Reported she took 15 hydroxyzine tablets but nothing happened except sleep. After waking, came to [facility] ER and was admitted subsequently, and pain medication abuse. Patient reported feeling more depressed for last 7 months, decreased sleep, variable appetite, no change in weight. Suicidal ideations with plan to overdose on her medications and subsequently attempted by overdosing on 15 tablets of hydroxyzine. History of one previous suicidal attempts in May 2016 when patient was admitted to [facility]. History of 2 previous admissions at [facility] in May and June 2016. Currently denied any psychotic features but during her last admission patient reported having command type auditory hallucinations telling her to kill herself. Patient also reported having mood swings, racing thoughts, irritability, anger and spending money. Denied any anxiety symptoms. Patient has history of oxycodone use. Reported she started to 3 years ago. In the beginning she was prescribed Percocet after right wrist surgery. Later she started buying oxycodone from [facility]. Currently reported was taking 10 oxycodone tablets each of 30 mg daily. His last used reported 2 days ago. Reported having mild withdrawal symptoms. Cannabis. Started 10 years ago and last use reported 2 months ago. Urine drug screen is positive for cannabis but not for opiates. Patient smokes one pack of cigarettes daily and is requesting for nicotine patch. Patient has iron deficiency anemia, not taking treatment. History of right wrist surgery and 2 C-sections. Patient was born in [place], has high school graduation, not working. Her last job was in December 2016. Lives with HER-2 children and mother. She is single. Her height is 5 feet 5 inches and weight is 140 pounds. During her stay in the hospital, patient was started on different medications including Depakene, gabapentin, other when necessary medications. Patient urine drug screen was negative for opiates. Patient will get any methadone but got clonidine and other when necessary medications. During her stay patient was keep asking for Ativan reported that only Ativan is helping. Patient stated that no other medications helped. Issues discussed with the patient. Patient was stable today and ready for discharge. At the time of evaluation and discharge, patient was awake alert oriented 3, had no delusions, no auditory or visual hallucinations, no suicidal ideations or homicidal ideations. Patient was discharged in a stable condition. - Diagnosis (1) Bipolar 1 disorder, depressed, moderate Status: Acute (2) Opioid dependence Status: Acute (3) Cannabis use disorder, mild, abuse Status: Acute - Final Diagnosis (DSM 5) Condition upon Discharge: STABLE Disposition: HOME/ ROUTINE Prescriptions/Medication Reconciliation: Ferrous Sulfate [Feosol Liq] 300 mg PO TID #90 udc Gabapentin [Neurontin] 400 mg PO TID #90 cap Propranolol [Inderal] 20 mg PO TID #90 tab QUEtiapine [Seroquel] 100 mg PO HS #30 tab Sertraline [Zoloft] 100 mg PO DAILY #30 tab traZODone [Desyrel] 100 mg PO HS #30 tab Valproic Acid [Depakene Oral Soln] 500 mg PO BID #60 cup - Smoking Cessation Smoking Cessation Medication prescribed: No - Antipsychotic Medications Pt discharged on 2 or more routine antipsychotic medications: No
== END 2017-01-18 11:25 | disposition home or self-care (01) | DRG 430 ==
LOC: C.ER 11:08 → C.9OBSV 11:48 → C.5E 15:00 → OBSVTOIN 15:00
PROC: HZ2ZZZZ Detoxification Services for Substance Abuse Treatment (ICD-10-PCS; principal; 2017-01-11)
PROC: HZ52ZZZ Individual Psychotherapy for Substance Abuse Treatment, Cognitive-Behavioral (ICD-10-PCS; 2017-01-11)
PROC: HZ59ZZZ Individual Psychotherapy for Substance Abuse Treatment, Supportive (ICD-10-PCS; 2017-01-11)
PROC: HZ42ZZZ Group Counseling for Substance Abuse Treatment, Cognitive-Behavioral (ICD-10-PCS; 2017-01-11)
PROC: HZ46ZZZ Group Counseling for Substance Abuse Treatment, Psychoeducation (ICD-10-PCS; 2017-01-11)
DX: F31.9 Bipolar disorder, unspecified (principal); F11.23 Opioid dependence with withdrawal; R45.851 Suicidal ideations; F17.210 Nicotine dependence, cigarettes, uncomplicated; D50.9 Iron deficiency anemia, unspecified; T46.5X2A Poisoning by other antihypertensive drugs, intentional self-harm, initial encounter; F41.9 Anxiety disorder, unspecified; F12.90 Cannabis use, unspecified, uncomplicated

== ENCOUNTER 2017-10-26 15:51 | Inpatient (IN) | payer MEDICAID, OTHER ==
[2017-10-26 16:24] VITALS: BMI 25.7
--- NOTE | 2017-10-26 16:46 | C.PDOC ---
History Of Present Illness 37yo female, comes to ER stating she feels depressed and has been having suicidal ideation. She also states she has been taking oxycodone tablets. Otherwise, she denies any fever, chills, chest pain, shortness of breath, or abdominal pain. She offers no medical complaints. Time Seen by Provider: 10/26/17 16:31 Chief Complaint (Nursing): Psychiatric Evaluation History Per: Patient History/Exam Limitations: no limitations Onset/Duration Of Symptoms: Days Current Symptoms Are (Timing): Still Present Associated Symptoms: Depression, Suicidal Thoughts Past Medical History Reviewed: Historical Data, Nursing Documentation, Vital Signs Vital Signs: Last Vital Signs Temp 98.2 F 10/27/17 06:40 Pulse 73 10/27/17 12:34 Resp 17 10/27/17 12:34 BP 118/78 10/27/17 12:34 Pulse Ox 98 10/26/17 20:00 - Medical History PMH: Anemia, Anxiety, Depression Denies: Diabetes, Hepatitis, HIV, HTN, Seizures, Sexually Transmitted Disease Surgical History: No Surg Hx - [facility] DETOXIFICATION SERVICES FOR SUBSTANCE ABUSE TREATMENT (01/11/17) GROUP PIPE SUPERVISOR FOR SUBSTANCE ABUSE TREATMENT, PSYCHOEDUCATION (01/11/17) GROUP PIPE SUPERVISOR FOR SUBSTANCE ABUSE, COGNITIVE BEHAVIORAL (01/11/17) INDIV PSYCHOTHERAPY FOR SUBSTANCE ABUSE TREATMENT, SUPPORT (01/11/17) INDIV PSYCHOTHERAPY FOR SUBSTANCE ABUSE, COGNITIV BEHAVIORAL (01/11/17) Family History: States: Unknown Family Hx - Social History Hx Alcohol Use: No Hx Substance Use: Yes - Immunization History Hx Tetanus Toxoid Vaccination: No Hx Influenza Vaccination: No Hx Pneumococcal Vaccination: No Review Of Systems Except As Marked, All Systems Reviewed And Found Negative. Constitutional: Negative for: Fever, Chills Cardiovascular: Negative for: Chest Pain Respiratory: Negative for: Shortness of Breath Gastrointestinal: Negative for: Abdominal Pain Psych: Positive for: Depression, Suicidal ideation Physical Exam - Physical Exam Appears: Non-toxic Skin: Normal Color, Dry Head: Atraumatic, Normacephalic Eye(s): bilateral: Normal Inspection Neck: Normal ROM, Supple Chest: Symmetrical Cardiovascular: Rhythm Regular Respiratory: Normal Breath Sounds Gastrointestinal/Abdominal: Normal Exam, Soft, No Tenderness Back: Normal Inspection Extremity: Normal ROM (x 4) Pulses: Left Dorsalis Pedis: Normal, Right Dorsalis Pedis: Normal Neurological/Psych: Oriented x3, Normal Speech, Normal Cognition, Normal Motor, Normal Sensation ED Course And Treatment - Laboratory Results Result Diagrams: 10/26/17 17:02 10/26/17 17:02 ECG: Interpreted By Me, Viewed By Me ECG Rhythm: Sinus Rhythm ECG Interpretation: Normal Interpretation Of ECG: Normal intervals, normal axis Rate From EC O2 Sat by Pulse Oximetry: 99 (RA) Pulse Ox Interpretation: Normal Medical Decision Making Medical Decision Making: Impression: Depression, suicidal ideation Plan: -- Labs -- UDS -- Urinalysis [id number] Patient medically cleared for crisis evaluation patient has hx of tubal ligation states hgb normally runs between 6-7 patient states she has iron supplements prescribed for hx of chronic anemia Disposition Discussed With : Brittaney Florez Doctor Will See Patient In The: Hospital Counseled Patient/Family Regarding: Studies Performed, Diagnosis - Disposition Disposition: HOSPITALIZED Disposition Time: 18:47 Condition: FAIR - Clinical Impression Clinical Impression: Depression, Chronic anemia - Scribe Statement The provider has reviewed the documentation as recorded by the Wilbur Turpin Provider Attestation: All medical record entries made by the Wilbur were at my direction and personally dictated by me. I have reviewed the chart and agree that the record accurately reflects my personal performance of the history, physical exam, medical decision making, and the department course for this patient. I have also personally directed, reviewed, and agree with the discharge instructions and disposition.
[2017-10-26 17:12] LABS: BASO % 0.6 % (0.0-2.0); EOS # 0.1 K/uL (0.0-0.7); EOS % 1.8 % (0.0-4.0); HEMOGLOBIN 6.7 g/dL (11.0-16.0); LYMPH # 3.7 K/uL (1.0-4.3); LYMPH % 54.5 % (20.0-40.0); MEAN CELL VOLUME 54.1 fL (81.0-99.0); MEAN CORPUSCULAR HEMOGLOBIN 15.2 pg (27.0-31.0); MEAN CORPUSCULAR HGB CONC 28.1 g/dL (33.0-37.0); MEAN PLATELET VOLUME 8.5 fL (7.2-11.7); MONO # 0.4 K/uL (0.0-0.8); NEUT # 2.5 K/uL (1.8-7.0); NEUT % 37.1 % (50.0-75.0); RBC 4.43 Mil/uL (3.80-5.20); RED CELL DISTRIBUTION WIDTH 25.6 % (11.5-14.5); WHITE BLOOD COUNT 6.7 K/uL (4.8-10.8)
[2017-10-26 17:19] LABS: ALB/GLOB RATIO 1.6 (1.0-2.1); ALBUMIN 4.7 g/dL (3.5-5.0); ALT/SGPT 20 U/L (9-52); AST/SGOT 14 U/L (14-36); BLOOD UREA NITROGEN 7 mg/dL (7-17); CALCIUM 8.7 mg/dl (8.6-10.4); GFR AFRICAN-AMERICAN > 60; GFR NON-AFRICAN AMERICAN > 60
[2017-10-26 17:28] LABS: SQUAMOUS EPITHIAL 14 /hpf (0-5); URINE BILIRUBIN NEGATIVE (NEGATIVE); URINE BLOOD NEGATIVE (NEGATIVE); URINE CLARITY Hazy (Clear); URINE COLOR Yellow (YELLOW); URINE GLUCOSE (UA) NORMAL (Normal); URINE LEUKOCYTE ESTERASE TRACE Leu/uL (Negative); URINE PROTEIN NEGATIVE (NEGATIVE)
[2017-10-26 17:58] LABS: BARBITURATES, UR NEGATIVE (NEGATIVE); PHENCYCLIDINE, UR NEGATIVE (NEGATIVE)
[2017-10-26 18:18] LABS: BENZODIAZEPINES, UR POSITIVE (NEGATIVE); OPIATES, UR POSITIVE (NEGATIVE)
[2017-10-26] MEDS ORDERED: Multiple Vitamins Tab PO ONE (20:09)
[2017-10-26] MEDS: Ferrous Sulfate 300 mg/5 mL Liq UD PO SCH (20:11)
--- NOTE | 2017-10-26 20:12 | PCM.BM ---
<StoneMarilee Bernaln - Last Filed: 10/26/17 20:10> Treatment Plan Problems - Problems identified on initial assessmt Depression Date Initiated: 10/26/17 Time Initiated: 20:10 Assessment reference: NA Status: Active Substance Abuse Date Initiated: 10/26/17 Time Initiated: 20:11 Assessment reference: NA Status: Active Treatment assets and liabiliti Patient Assests: adapts well, cooperative, negotiates basic needs Patient Liabilities: substance abuse - Milieu Protocol Maintain good personal hygiene: daily Encourage regular showers, daily Remind patient to perform daily oral care, daily Assist patient to perform ADL's Conduct patient checks and document Observation sheet: Q15 minutes Maintain personal safety: every shift Educate patient to report safety concerns to staff, every shift Monitor environment for contraband/sharps Medication safety: Monitor for expected outcome, potential side effects: every shift, Assess barriers to learning: every shift, Assess readiness for medication education: every shift <Bailey Llamas - Last Filed: 10/28/17 11:22> Family Contact Family involvement: Famliy/SO not involved - Goals for Treatment Patient goals for treatment: "I want to go to rehab." Discharge/Continuing Care - Education Needs Education Needs: Patient Medication, Patient Coping Skills, Patient Placement options, Patient Community resources - Discharge Discharge Criteria: Tolerates medication w/o severe side effects, No longer exhibiting s/s of withdrawal Discharge to:: Substance Abuse Rehab - Treatment Team Participation Discussed with Family/SO: No Was Patient/Family/SO present at Treatment Team Meeting: Yes <Maxwell Thomas - Last Filed: 10/28/17 20:23> - Diagnosis (1) Bipolar 1 disorder, depressed, moderate Status: Acute Interventions: 10/28/17 20:22 * Assess/adjust medications daily and /or as needed * See patient on an individual basis 7x/week to assess symptoms of depression * Monitor for side effects & effectiveness of medications (2) Opioid use disorder, severe, dependence Status: Acute Interventions: 10/28/17 20:22 * Assess 7x/week regarding severity of withdrawal * Educate regarding risks, benefits, side effects and alternatives of medications * Use Motivational Interviewing for abstinence * Use CBT for relapse prevention * Medication management for withdrawal symptoms * Encourage medication assisted treatment (3) Moderate sedative, hypnotic, or anxiolytic use disorder Status: Acute Interventions: 10/28/17 20:23 * Assess 7x/week regarding severity of withdrawal * Educate regarding risks, benefits, side effects and alternatives of medications * Use Motivational Interviewing for abstinence * Use CBT for relapse prevention * Medication management for withdrawal symptoms * Encourage medication assisted treatment (4) Cannabis use disorder, moderate, dependence Status: Acute Interventions: 10/28/17 20:23 * Assess 7x/week regarding severity of withdrawal * Educate regarding risks, benefits, side effects and alternatives of medications * Use Motivational Interviewing for abstinence * Use CBT for relapse prevention * Medication management for withdrawal symptoms * Encourage medication assisted treatment
[2017-10-27] MEDS: Ferrous Sulfate 300 mg/5 mL Liq UD PO SCH (09:58)
[2017-10-27] MEDS: Multiple Vitamins Tab PO SCH (09:59)
--- NOTE | 2017-10-27 11:27 | CARD ---
APPROVED REPORT Date of service: 10/26/2017 EKG Measurement Heart [id number] <Conclusion> Normal sinus rhythm Normal ECG
[2017-10-27] MEDS ORDERED: Aluminum Hydroxide/Magnesium Hydroxide Susp (30 mL) PO PRN (12:21)
[2017-10-27 13:43] VITALS: O2SAT 99
[2017-10-27] MEDS ORDERED: Multiple Vitamins Tab PO ONE ×2 (20:09→21:15)
--- NOTE | 2017-10-27 23:18 | PCM.PSYCH ---
Initial Psychiatric Evaluation - Initial Psychiatric Evaluation Type of Admission: Voluntary Legal Status: Capacity Chief Complaint (in patient's own words): I need help from her depression and substance use. History of Present Illness and Precipitating Events: Patient is a 37 years old, single, employed, -[place] female with history of bipolar disorder depressed, noncompliant with treatment for last many months was admitted due to worsening of depression and withdrawing from substance use. Patient was guarded for most of the time. Difficult to obtain history. Most of the history was obtained from previous record. Patient reported she is depressed for last many months with decreased sleep and feeling tired, decreased appetite and lost some weight. Also reported having suicidal ideations with plan to overdose. History of one previous suicidal attempt by overdose on hydroxyzine and January 2017. Also that she cries a lot, hopelessness and helplessness. Patient reported that she sees things at times when intoxicated. Also history of manic episodes. History of 3 previous inpatient psychiatric admissions. Opiates: Patient reported she was using oxycodone 30 mg tablet, 5-10 of them daily. Last used 2 days ago. Benzos: Last used 2 days ago. Cannabis: Last use 5 days ago, one blunt. Also smokes cigarettes 4-5 cigarettes daily Patient has history of iron deficiency anemia but is noncompliant with treatment. History of 2 C-sections and right carpal tunnel syndrome repair. Patient was born in [place] and has some college education. Working. She is single and has 2 children 18 years and 16 years of age. Both of her children live with the patient. Patient lives alone. Her height is 5 feet 5 inches and weight is 155 pounds. Patient wants to go to long-term rehabilitation. Current Medications: Active Medications Generic Name Dose Route Start Last Admin Trade Name Freq PRN Reason Stop Dose Admin Al Hydrox/Mg Hydrox/Simethicone 30 ml 10/27/17 12:21 10/27/17 15:07 Maalox 30 Ml PO 30 ml TID PRN Administration Indigestion / Heartburn Clonidine HCl 0.1 mg 10/27/17 00:49 Catapres PO Q8 PRN COWS Score More or Equal to 5 Dicyclomine HCl 10 mg 10/27/17 12:21 Bentyl PO Q6 PRN Abdominal Discomfort Escitalopram Oxalate 10 mg 10/27/17 10:00 10/27/17 09:59 Lexapro PO Not Given DAILY [facility] Ferrous Sulfate 300 mg 10/26/17 20:00 10/27/17 09:58 Feosol Liq PO Not Given DAILY [facility] Hydroxyzine HCl 25 mg 10/26/17 18:50 10/27/17 19:39 Atarax PO 25 mg Q6H PRN Administration Anxiety Ibuprofen 600 mg 10/26/17 18:51 Motrin Tab PO Q6H PRN Pain, moderate (4-7) Loperamide HCl 2 mg 10/26/17 18:48 10/27/17 15:07 Imodium PO 2 mg Q8 PRN Administration Diarrhea Lorazepam 1 mg 10/27/17 12:25 10/27/17 18:01 Ativan PO 1 mg Q6 PRN Administration Anxiolytic withdrawal Methadone HCl 15 mg 10/28/17 10:00 Methadone PO 10/31/17 09:59 Q24H VIDA Taper Multivitamins 1 tab 10/27/17 10:00 10/27/17 09:59 Hexavitamin PO Not Given DAILY [facility] Nicotine 1 patch 10/27/17 13:00 10/27/17 13:05 Nicoderm Cq TD 1 patch DAILY [facility] Administration Ondansetron HCl 4 mg 10/26/17 18:48 Zofran Tab PO Q8 PRN Nausea/Vomiting Quetiapine Fumarate 100 mg 10/27/17 22:00 10/27/17 21:05 Seroquel PO 100 mg HS [facility] Administration Trazodone HCl 50 mg 10/26/17 18:48 10/26/17 21:15 Desyrel PO 50 mg HS PRN Administration Insomnia Past Psychiatric History - Past Psychiatric History Previous Treatment History: Inpatient History of Abuse: None reported History of ETOH/Drug Use: See HPI History of Family Illness: None reported Pertinent Medical Hx (Current Medical&Sleep Prob, Allergies): Allergies Allergy/AdvReac Type Severity Reaction Status Date / Time No Known Allergies Allergy Verified 10/26/17 16:23 No Known Home Med 10/26/17 Iodine deficiency anemia Review of Systems - Psychiatric Psychiatric: As Per HPI, Depression, Hopelessness Mental Status Examination - Personal Presentation Personal Presentation: Looks stated age - Affect Affect: Depressed - Motor Activity Motor Activity: Calm - Reliability in Providing Information Reliability in Providing Information: Fair - Speech Speech: Organized - Mood Mood: Depressed - Formal Thought Process Formal Thought Process: No Impairment - Hallucinations/Delusions Hallucinations: Other (None reported) Delusions: Other - Obsessions/Compulsions Obsessions: None Compulsions: None - Cognitive Functions Orientation: Person, Place, Situation, Time Sensorium: Alert Attention/Concentration: Attentive Abstract Thinking: Morris Estimate of Intelligence: Average Judgement: Intact, as evidence by: Insight regarding need for hospitalization Memory: Recent intact, as evidence by: Ability to recall events of the day, Remote intact, as evidenced by: Ability to recall historical events - Risk Risk: Withdrawal, Diminished functioning - Strength & Assets Inventory Strength & Assets Inventory: Cooperative - Limitations Limitations: Living alone DSM 5 DX - DSM 5 DSM 5 Diagnosis: Bipolar 1 disorder most recent episode depressed Opiate use disorder severe Anxiolytics use disorder severe Cannabis use disorder severe - Recommended/Plan of Treatment Treatment Recommendations and Plan of Treatment: Patient education. Supportive therapy. CBT for relapse prevention. OR for abstinence. We will start methadone for opiate withdrawal symptoms. When necessary Librium for anxiolytics withdrawal symptoms. Other when necessary medications. Medication for depression. Patient wants to go to [facility] after discharge from the hospital for follow-up care. Projected ELOS: 8-10 days - Smoking Cessation Smoking Cessation Initiated: Yes
[2017-10-28 06:36] VITALS: BP 127/85; PULSE 69; RESP 18; TEMP 97.9
[2017-10-28] MEDS: Ferrous Sulfate 300 mg/5 mL Liq UD PO SCH (09:15)
[2017-10-28] MEDS: Multiple Vitamins Tab PO SCH (09:15)
--- NOTE | 2017-10-28 20:31 | PCM.PYCHDC ---
Mental Status Examination - Mental Status Examination Orientation: Person, Place, Situation, Time Memory: Intact Mood: Neutral (At the time of discharge) Affect: Other (Appropriate) Speech: Appropriate Attention: WNL Concentration: WNL Association: WNL Fund of Knowledge: WNL Formal Thought Process: No Impairment Description of patient's judgement and insight: Poor Psychotic Thoughts and Behaviors: None Suicidal Ideation: No Current Homicidal Ideation?: No Discharge Summary - Discharge Note Reason for Hospitalization: Bipolar 1 disorder depressed. Opiate use disorder severe Cannabis use disorder moderate Angiolytic use disorder moderate Laboratory Data: Reviewed Consultations:: List each consultation separately and include: 1. Reason for request. 2. Findings. 3. Follow-up Summary of Hospital Course include:: 1. Description of specific treatment plan utilized for patients during their course of treatmen. 2. Summarize the time- course for resolution of acute symptoms and/or regressed behaviors. 3. Describe issues identified and worked on during hospitalization. 4. Describe medication utilized. 5. Describe medical problems identified and treated. 6. Reassessment of suicide risk Summary of Hospital Course: Patient is a 37 years old, single, employed, -[place] female with history of bipolar disorder depressed, noncompliant with treatment for last many months was admitted due to worsening of depression and withdrawing from substance use. Patient was guarded for most of the time. Difficult to obtain history. Most of the history was obtained from previous record. Patient reported she is depressed for last many months with decreased sleep and feeling tired, decreased appetite and lost some weight. Also reported having suicidal ideations with plan to overdose. History of one previous suicidal attempt by overdose on hydroxyzine and January 2017. Also that she cries a lot, hopelessness and helplessness. Patient reported that she sees things at times when intoxicated. Also history of manic episodes. History of 3 previous inpatient psychiatric admissions. Opiates: Patient reported she was using oxycodone 30 mg tablet, 5-10 of them daily. Last used 2 days ago. Benzos: Last used 2 days ago. Cannabis: Last use 5 days ago, one blunt. Also smokes cigarettes 4-5 cigarettes daily Patient has history of iron deficiency anemia but is noncompliant with treatment. History of 2 C-sections and right carpal tunnel syndrome repair. Patient was born in [place] and has some college education. Working. She is single and has 2 children 18 years and 16 years of age. Both of her children live with the patient. Patient lives alone. Her height is 5 feet 5 inches and weight is 155 pounds. Patient wants to go to long-term rehabilitation. Patient was started on methadone taper for opiate withdrawal symptoms and other when necessary medications. Patient was also started the medication for her depression. On her first day of admission patient was found smoking cigarettes on the unit and later during body search and room search, a cigarette and a cigarette marketing researcher was found in patient's possession. A warning was given to the patient. Later patient tried to disrupt the unit. Again patient was redirected. Patient was demanding increasing amount of methadone claiming that she has withdrawal symptoms in the absence of any. Patient was angry. Spoke with patient with this staff many times and also in treatment team meeting also. Still patient was cursing this provider and again tried to disrupt the unit. After discussing with other staff members, patient was discharged administratively for the safety of the unit,other patients and staff. At the time of evaluation and discharge patient was awake alert oriented 3, had no delusions, no auditory or visual hallucinations, no suicidal ideations or homicidal ideations. - Diagnosis (1) Bipolar 1 disorder, depressed, moderate Status: Acute (2) Opioid use disorder, severe, dependence Status: Acute (3) Moderate sedative, hypnotic, or anxiolytic use disorder Status: Acute (4) Cannabis use disorder, moderate, dependence Status: Acute - Final Diagnosis (DSM 5) Condition upon Discharge: FAIR Disposition: HOME/ ROUTINE - Smoking Cessation Smoking Cessation Medication prescribed: Yes - Antipsychotic Medications Pt discharged on 2 or more routine antipsychotic medications: No
== END 2017-10-28 11:55 | disposition home or self-care (01) | DRG 745 ==
LOC: C.ER 15:51 → C.5E 18:46
PROC: HZ2ZZZZ Detoxification Services for Substance Abuse Treatment (ICD-10-PCS; principal; 2017-10-26)
PROC: HZ52ZZZ Individual Psychotherapy for Substance Abuse Treatment, Cognitive-Behavioral (ICD-10-PCS; 2017-10-26)
PROC: GZHZZZZ Group Psychotherapy (ICD-10-PCS; 2017-10-26)
PROC: HZ59ZZZ Individual Psychotherapy for Substance Abuse Treatment, Supportive (ICD-10-PCS; 2017-10-26)
PROC: HZ56ZZZ Individual Psychotherapy for Substance Abuse Treatment, Psychoeducation (ICD-10-PCS; 2017-10-26)
PROC: HZ42ZZZ Group Counseling for Substance Abuse Treatment, Cognitive-Behavioral (ICD-10-PCS; 2017-10-26)
PROC: HZ46ZZZ Group Counseling for Substance Abuse Treatment, Psychoeducation (ICD-10-PCS; 2017-10-26)
PROC: GZ58ZZZ Individual Psychotherapy, Cognitive-Behavioral (ICD-10-PCS; 2017-10-26)
PROC: GZ56ZZZ Individual Psychotherapy, Supportive (ICD-10-PCS; 2017-10-26)
DX: F11.23 Opioid dependence with withdrawal (principal); F31.32 Bipolar disorder, current episode depressed, moderate; F13.20 Sedative, hypnotic or anxiolytic dependence, uncomplicated; F12.20 Cannabis dependence, uncomplicated; F17.210 Nicotine dependence, cigarettes, uncomplicated; R45.851 Suicidal ideations; Z91.19 Patient's noncompliance with other medical treatment and regimen; D64.9 Anemia, unspecified

== ENCOUNTER 2017-10-28 17:35 | Emergency (ER) | payer MEDICAID, OTHER ==
[2017-10-28 17:35] VITALS: BMI 25.7
[2017-10-28 17:41] VITALS: TEMP 99.6; O2SAT 100
--- NOTE | 2017-10-28 21:18 | C.PDOC ---
History Of Present Illness Pt was discharge from the psych unit today. Pt is here requesting to be re- admitted. Time Seen by Provider: 10/28/17 17:53 Chief Complaint (Nursing): Psychiatric Evaluation History Per: Patient Onset/Duration Of Symptoms: Hrs Current Symptoms Are (Timing): Still Present Suicide/Self Injury Attempted (Context): None Severity: Moderate Additional History Per: Prior Records Past Medical History Reviewed: Historical Data, Nursing Documentation, Vital Signs Vital Signs: Last Vital Signs Temp 99.6 F 10/28/17 17:38 Pulse 115 H 10/28/17 17:38 Resp 18 10/28/17 17:38 BP 136/86 10/28/17 17:38 Pulse Ox 100 10/28/17 17:38 - Medical History PMH: Anemia, Anxiety, Depression - [facility] Procedures DETOXIFICATION SERVICES FOR SUBSTANCE ABUSE TREATMENT (01/11/17) GROUP PEER COUNSELOR FOR SUBSTANCE ABUSE TREATMENT, PSYCHOEDUCATION (01/11/17) GROUP PEER COUNSELOR FOR SUBSTANCE ABUSE, COGNITIVE BEHAVIORAL (01/11/17) INDIV PSYCHOTHERAPY FOR SUBSTANCE ABUSE TREATMENT, SUPPORT (01/11/17) INDIV PSYCHOTHERAPY FOR SUBSTANCE ABUSE, COGNITIV BEHAVIORAL (01/11/17) Family History: States: Unknown Family Hx - Social History Hx Alcohol Use: No Hx Substance Use: Yes - Immunization History Hx Tetanus Toxoid Vaccination: No Hx Influenza Vaccination: No Hx Pneumococcal Vaccination: No Review Of Systems Except As Marked, All Systems Reviewed And Found Negative. Constitutional: Negative for: Fever Cardiovascular: Negative for: Chest Pain Respiratory: Negative for: Shortness of Breath Gastrointestinal: Negative for: Vomiting, Abdominal Pain Musculoskeletal: Negative for: Neck Pain Neurological: Negative for: Weakness, Seizures Physical Exam - Physical Exam Appears: Non-toxic, No Acute Distress Skin: Warm, Dry Head: Atraumatic, Normacephalic Eye(s): bilateral: PERRL, EOMI Neck: Normal ROM, Supple Cardiovascular: Rhythm Regular Respiratory: Normal Breath Sounds, No Accessory Muscle Use Gastrointestinal/Abdominal: Soft, No Tenderness Extremity: Normal ROM, No Deformity Neurological/Psych: Oriented x3, Normal Motor, Normal Sensation ED Course And Treatment O2 Sat by Pulse Oximetry: 100 Pulse Ox Interpretation: Normal Progress Note: Pt was evaluated by the amusement park worker who d/w Dr. Verdin. They psychiatrically cleared pt for discharge home. Disposition Counseled Patient/Family Regarding: Need For Followup - Disposition Disposition: HOME/ ROUTINE Disposition Time: 21:18 Condition: STABLE Additional Instructions: Follow up with outpatient mental health as instructed by the amusement park worker. Return to the ER if you develop worsening of symptoms or if you have any other concerns. Forms: General Discharge Instructions - Clinical Impression Clinical Impression: Psychiatric disorder
[2017-10-28 21:57] VITALS: BP 117/60; PULSE 70; RESP 12
== END 2017-10-28 21:54 | disposition home or self-care (01) ==
LOC: C.ER 17:35
DX: F99 Mental disorder, not otherwise specified (principal)